=== PATIENT | female | born 1970 | race Caucasian/White ===

== ENCOUNTER → 2021-12-12 10:50 | Outpatient (BNVA) | payer MEDICARE, SELFPAY | PROVIDERS: Visit Provider Thoracic Surgery (Cardiothoracic Vascular Surgery) | DX: Z96.89 Presence of other specified functional implants (principal) | CPT/HCPCS: 99203 ==

== ENCOUNTER 2021-12-31 06:05 | Day surgery (SDC) | payer MEDICARE, BC, SELFPAY ==
[2021-12-30 13:22] VITALS: BMI 21.1
--- NOTE | 2021-12-31 06:41 | W.PM.OPSUD ---
Surgery/Procedure H&P Update DATE OF PROCEDURE: December 31, 2021 DATE H&P PERFORMED: 12/12/21 H&P UPDATE INFORMATION: I have reviewed H&P completed within last 30 days, I have examined patient prior to procedure and No changes to prior documentation PREOP DIAGNOSIS: VNS generator end of service PLANNED PROCEDURE: Operation Date: 12/31/21 07:00 Proposed Procedures p VNS Generator Exchange [id number],G40.219(Not Applicable) - Carloz Pizano MD
--- NOTE | 2021-12-31 06:46 | P.ANESASSM_ITS ---
Pre-Anesthetic Assessment Height/Weight: Height 1.7 m Weight 61.235 kg Preop Diagnosis: VNS generator end of service Operation Date: 12/31/21 07:00 Proposed Procedures p VNS Generator Exchange 76269,G40.219(Not Applicable) - Carloz Pizano MD Familial anesthetic complications: None Was Beta Jonah taken within 24 hours: N/A Was Clonidine taken within 24 hours: N/A Last intake: > 8 hrs Social No alcohol and No tobacco Exam alert, oriented x 3, clear to auscultation bilaterally and regular rate & rhythm Airway Mallampati: Class II Dentition: full CV/HEM Hypertension Neuropsych Seizure Anesthetic Plan ASA status: 3 Anesthesia: MAC Risk of > 500 ml blood loss (7ml/kg in children): No Medications/Allergies Home Medications Medication Instructions Recorded Confirmed Last Taken Type carbamazepine 300 mg 300 mg PO BID 12/12/21 12/30/21 12/30/21 08:00 History capsule,extended release [id number] (Carbatrol) lisinopril 40 mg tablet 40 mg PO BID 12/12/21 12/30/21 12/29/21 20:00 History phenytoin sodium extended 100 mg 100 mg PO TID 12/12/21 12/30/21 12/30/21 08:00 History capsule (Dilantin Extended) Allergies Allergy/AdvReac Type Severity Reaction Status Date / Time No Known Allergies Allergy Verified 12/31/21 06:46 [facility] Anesthesia Surgical History (Updated 12/12/21 @ 11:35 by Carloz Pizano MD) S/P placement of VNS (vagus nerve stimulation) device Family History Mother Cancer Denies family history of Diabetes CAD (coronary artery disease) Stroke Social History Smoking and tobacco status: never smoked Alcohol intake: never Caregiver/support person: Yes Lives independently: No Household members: other Details: caregiver Marital status: Number of children: 0 Pets and animals: Yes Pets & animals: cat(s) Female Reproductive History Date of last menstrual period: 08/03/19 Data Anesthesia Cardiac Studies: No Data to Display
[2021-12-31 06:47] VITALS: BP 136/107; PULSE 89; RESP 18; TEMP 36.6
[2021-12-31] MEDS: sodium chloride 0.9% 1,000 ML 30 ML IV (06:51)
[2021-12-31] MEDS: ceFAZolin 2,000 MG in sodium chloride 0.9% (plus) 50 ML 100 MG IV (07:00)
[2021-12-31 07:02] LABS: Basophils # 0.1 10^3/uL (0.0-0.1); Basophils % 0.8 %; Eosinophils # 0.3 10^3/uL (0.0-0.8); Hematocrit 40.3 % (37.0-47.0); Hemoglobin 13.5 g/dL (11.5-15.3); Lymphocytes # 2.1 10^3/uL (0.8-4.8); Mean Corpuscular HGB Conc 33.5 g/dL (30.0-36.0); Mean Corpuscular Hemoglobin 31.8 pg (28.0-34.0); Mean Corpuscular Volume 94.8 fl (81-99); Mean Platelet Volume 9.5 fL (7.4-10.4); Monocytes # 0.8 10^3/uL (0.2-0.9); Monocytes % 8.6 %; Neutrophils # 5.64 10^3/uL (1.8-7.7); Neutrophils % 63.4 %; Nucleated Red Blood Cells % 0 %; Platelet Count 275 10^3/cmm (130-400); Red Blood Count 4.25 10^6/uL (4.1-5.3); Red Cell Distribution Width 12.1 % (12.1-15.1); White Blood Count 8.9 10^3/uL (4.0-10.0)
[2021-12-31 07:20] LABS: Anion Gap 16.3 (5-19); Blood Urea Nitrogen 12 mg/dL (6-20); Calcium 9.4 mg/dL (8.5-10.5); Carbon Dioxide 26 mmol/L (22-29); Chloride 97 mmol/L (98-107); Glomerular Filtration Rate 130.1 mL/min (90-130); Glucose 88 mg/dL (65-115); Osmolality Calculated 279 mOsm/kg (285-295); Potassium 4.3 mmol/L (3.5-5.1); Sodium 135 mmol/L (136-145)
[2021-12-31] MEDS: lidocaine 1% INJ 20 mL 15 ML XX (07:22)
[2021-12-31] MEDS: ceFAZolin 1,000 mg SDV 1000 MG IRRIGATION (07:24)
--- NOTE | 2021-12-31 07:59 | P.OP_ITS ---
Operative Report Date of procedure: December 31, 2021 Pre-op diagnosis: Preop Diagnosis VNS generator end of service Post-op diagnosis: same Procedure done: Vagal nerve stimulator generator exchange Implants: Vagal nerve stimulator generator Specimens removed/disposition: Depleted vagal nerve stimulator generator Pathology: none sent Surgeon: Carloz Pizano Anesthesia: MAC and Local Complications: None Condition: stable Disposition: same day Brief History: Ms. Locke is a very pleasant 51-year-old female with a vagal nerve stimulator in place for recurrent, refractory seizures. The current generator is now at end of service. Replacement has been requested. She resides in [place], [place] and is followed by neurological service at that location. Details of risk the procedure were carefully and frankly discussed. Appropriate consents have been reviewed and signed. Procedure: The patient was taken to the operating room theater and Positioned on the OR table over protective padding. She underwent IV conscious sedation with anesthesia monitoring. Her entire left chest was sterilely prepped and draped. Appropriate timeout was completed and confirmed. 1% lidocaine was infiltrated at the area of the prior incision for device implantation. #15 scalpel blade was utilized to incise the skin down to the subtendinous tissues. Careful dissection was then performed utilizing scalpel, Metzenbaum scissors, and cautery if required to reach the pseudocapsule. Care was taken to identify the course of the VNS wire. The pseudocapsule was then opened utilizing #15 scalpel blade exposing the generator which was subsequently delivered. Antibiotic soaked gauze was placed in the wound. Setscrew was released to remove the VNS wire and the old generator was removed from the field. The new generator was then connected to the VNS wire and the setscrew was secured with good contact confirmed with axial traction. Wound was carefully irrigated with antibiotic solution. Hemostasis confirmed. The device was then placed back into the pseudocapsule pocket. On the table interrogation was then performed with appropriate parameters confirmed. Once completed, the incision was then closed with 2 layers of 3-0 Vicryl suture. Skin was reapproximated in a subcuticular manner with 4-0 Monocryl suture. Dermal glue was then applied followed by sterile dressing and pressure dressing. Procedure was well-tolerated and patient was awakened from IV conscious sedation and then transferred to Outpatient Surgery department in stable condition. Model: Sentiva #1000 Serial #: [id number] Lead impedance 3089 On time: 30 seconds off time: 5 minutes duty cycle: 10% pulse width: 500 ?s Frequency: 20 Hz
[2021-12-31 08:02] VITALS: BP 102/70; PULSE 79; RESP 16; TEMP 36.1; O2SAT 98
[2021-12-31 08:06] VITALS: BP 114/75; PULSE 73; RESP 14; O2SAT 98
[2021-12-31 08:10] VITALS: BP 114/79; PULSE 72; RESP 16; TEMP 36.3; O2SAT 98
[2021-12-31 08:15] VITALS: BP 98/72; PULSE 71; RESP 16; TEMP 36.6; O2SAT 99
[2021-12-31 08:30] VITALS: BP 116/79; PULSE 75; RESP 17; O2SAT 100
[2021-12-31] MEDS: HYDROcodone-acetaminophen 5-325 mg Tablet 1 TAB PO (09:10)
--- NOTE | 2021-12-31 16:23 | ANE.PACU2 ---
Inpatient post-anesthesia follow up: Airway intact: Yes Vital signs: Temperature 98 F Pulse Rate 75 Respiratory Rate 17 Blood Pressure 116/79 Pulse Oximetry 100 Oxygen Delivery Me thod Room Air Oxygen Flow Rate Fraction of Inspir ed Oxygen Hydration adequate: Yes Nausea and vomiting: No Pain level: 1 Mental status: Baseline
== END 2021-12-31 09:15 | disposition home or self-care (01) ==
PROVIDERS: Visit Provider Thoracic Surgery (Cardiothoracic Vascular Surgery)
PROC: (CPT 61885; principal; 2021-12-31 07:00)
DX: Z45.49 Encounter for adjustment and management of other implanted nervous system device (principal); I10 Essential (primary) hypertension
CPT/HCPCS: 61885; 36415; 80048; 85025; C1767; J0690; J2370; J2704; J3010; J7030